=== PATIENT | male | born 1970 | race Caucasian/White ===

== ENCOUNTER 2019-02-13 17:05 | Observation (INO) | payer MEDICAID ==
[~2019-02-13] VITALS: Ht 188 cm; Wt 92.7 kg
[2019-02-13] MEDS ORDERED: LISINOPRIL40 MG PO (17:18)
[2019-02-13 19:26] LABS: CKMB 7.6 U/L (0.0-3.6); CREATINE KINASE 335 UL (21-232); TROPONIN-I 0.035 ng/mL (0.000-0.060)
--- NOTE | 2019-02-13 19:30 | NUR ---
RECEIVED PT FROM ER, PT IS A&OX4, IV-R.HAND-NS @200, [id number], PROVIDED PT WITH A SANDWICH AND TEA, AT BEDSIDE, BED IS LOW, SRX1, CALL LIGHT IN REACH, WILL CONTINUE PLAN OF CARE
[2019-02-14 01:26] LABS: CKMB 5.9 U/L (0.0-3.6); CREATINE KINASE 282 UL (21-232); TROPONIN-I 0.032 ng/mL (0.000-0.060)
[2019-02-14 04:00] VITALS: BP 111/91
[2019-02-14 04:17] VITALS: BP 103/53; BMI 26.2
[2019-02-14 06:09] LABS: BASOPHILS 0.7 % (0-2); EOSINOPHILS 2.2 % (0-7); HEMATOCRIT 45.2 % (42.0-54.0); IMMATURE GRANULOCYTES 0.1 % (0-5); MCH 30.4 pg (26.0-34.0); MCHC 35.4 g/dL (31.0-37.0); MCV 85.8 fL (80.0-100.0); MEAN PLATELET VOLUME 12.5 fL (7.4-10.4); MONOCYTES 7.3 % (2-11); NEUTROPHILS 59.7 % (40-80); PLATELET COUNT 149 10x3/uL (130-400); RBC 5.27 10x6/uL (4.20-6.10); RDW 13.8 % (11.5-14.5); WBC 7.3 10x3/uL (4.8-10.8)
[2019-02-14 06:43] LABS: ALBUMIN 3.4 g/dL (3.4-5.0); ALKALINE PHOSPHATASE 92 U/L (46-116); ALT (SGPT) 24 U/L (10-68); BILIRUBIN - TOTAL 0.59 mg/dL (0.2-1.3); CALC OSMOLALITY 285 mosm/kg (275-300); CALCIUM 8.6 mg/dL (8.5-10.1); CARBON DIOXIDE 26.5 mmol/L (21.0-32.0); CHLORIDE - SERUM 107 mmol/L (98-107); CKMB 5.7 U/L (0.0-3.6); CREATINE KINASE 248 UL (21-232); CREATININE - SERUM 1.3 mg/dL (0.6-1.3); GLUCOSE 99 mg/dL (74-106); MAGNESIUM - SERUM 2.1 mg/dL (1.8-2.4); PHOSPHOROUS 2.6 mg/dL (2.5-4.9); POTASSIUM - SERUM 4.6 mmol/L (3.5-5.1); PROTEIN - SERUM 6.5 g/dL (6.4-8.2); SODIUM 141 mmol/L (136-145); TROPONIN-I 0.023 ng/mL (0.000-0.060); UREA NITROGEN 27 mg/dL (7-18); eGFR NON AFRICAN AMERICAN 63 mL/min (90-120)
--- NOTE | 2019-02-14 07:00 | NUR ---
ASSESSMENT DONE DENIES NEEDS
--- NOTE | 2019-02-14 07:43 | NUR ---
ORTHO B/P SIT 100/76 STAND 119/80
[2019-02-14 07:55] VITALS: BP 104/71
[2019-02-14 12:15] VITALS: Ht 188 cm; Wt 92.7 kg
[2019-02-14 12:25] VITALS: BP 128/72
--- NOTE | 2019-02-14 14:25 | NUR ---
I have reviewed this patient and I concur with the Shift Assessment completed by the Licensed Practical Nurse today this shift.
--- NOTE | 2019-02-14 14:53 | NUR ---
PT SIGNED AND LEFT AMA
--- NOTE | 2019-02-17 08:02 | MORECARE ---
CASE MANAGEMENT DISCHARGE SUMMARY PATIENT: EARNEST ALVARADO UNIT: [id number] ADM DATE: 02/13/19 AGE: 48 : 72 SEX: M ROOM/BED: D.2122 AUTHOR: SANTIAGO BEAUCHAMP PHYSICIAN: REFERRING PHYSICIAN: RICHARD HAMLIN MD DATE OF SERVICE: 02/17/19 Discharge Plan Patient Name: EARNEST ALVARADO Facility: [facility]:[place] : 1970 Planned Disposition: Left Against Medical Advice Anticipated Discharge Date: 02/14/19 Discharge Date: 02/14/2019 Expected LOS: 1 Initial Reviewer: [email or web address] Initial Review Date: 02/17/2019 Generated: 02/17/19 9:01 am Patient Name: EARNEST ALVARADO Page [id number] at 0802 All edits/amendments must be made on the electronic document DICTATION DATE: 02/17/19 08 CLERICAL PRODUCTION WORKER: STANLEY 02/17/19 08 RPT#: [id number] DC DATE:02/14/19 STATUS: DIS IN [facility] [address] [place] [address] END OF REPORT
== END 2019-02-14 14:53 | disposition left against medical advice (07) ==
LOC: D.ER 17:05 → D.M2 18:31 → OBSVTIME 18:32 → D.M2 02-14 14:53
PROVIDERS: Family Medicine; ADMIT Internal Medicine Nephrology; ATTEND Internal Medicine Nephrology
DX: R55 Syncope and collapse (principal); T67.5XXA Heat exhaustion, unspecified, initial encounter; N17.9 Acute kidney failure, unspecified; I10 Essential (primary) hypertension; F17.203 Nicotine dependence unspecified, with withdrawal